=== PATIENT | female | born 1990 | race Caucasian/White ===

== ENCOUNTER 2018-11-20 11:35 | Emergency (ER) | payer BC ==
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
== END 2018-11-20 12:15 | disposition home or self-care (01) ==
LOC: JD.ED 11:35
DX: Z77.22 Contact with and (suspected) exposure to environmental tobacco smoke (acute) (chronic) (principal); E66.9 Obesity, unspecified; Z96.22 Myringotomy tube(s) status; Z91.018 Allergy to other foods; X00.1XXA Exposure to smoke in uncontrolled fire in building or structure, initial encounter
CPT/HCPCS: 99281; 99283